=== PATIENT | female | born 1990 ===

== ENCOUNTER 2017-02-05 06:01 | Emergency (ER) | payer SELFPAY | END 2017-02-05 06:55 | disposition home or self-care (01) | LOC: ERS 06:01 | DX: K05.10 Chronic gingivitis, plaque induced (principal); F41.9 Anxiety disorder, unspecified; F17.210 Nicotine dependence, cigarettes, uncomplicated; F31.9 Bipolar disorder, unspecified | CPT/HCPCS: 99282 ==